=== PATIENT | female | born 1960 | race Caucasian/White ===

== ENCOUNTER 2017-08-02 12:34 | Emergency (ER) | payer OTHER ==
--- OUTSIDE RECORDS SUMMARY | 2017-08-02 12:42 | XMS REPORT ---
:1960 External Reference #:[id number] Author Organization [facility] Address [address] [address] Phone [phone] Care Team Providers Name Role Phone Avril Singh MD Primary Care Physician Unavailable Payers Type Date Identification Numbers Payment Provider Subscriber Commercial Policy Number: [id number] [facility] [employer] PayID: [id number] [address] [place] [address] Problems Date Description Provider Status Onset: 12/01/2013 Chest pain Hussein Dutta M.D. Active Onset: 12/01/2013 Obstructive sleep apnea syndrome Hussein Dutta M.D. Active Onset: 10/29/2013 Dyspnea Ica ECHO Schedule Active Family History Date Family Member(s) Problem(s) Comments Father fam history paternal grandfather, cardiac issues (uncertain of exact c/o) Mother Kidney Stones Mother lung cancer in mother Siblings 2 Siblings 2 siblings no cardiac issues in siblings Social History Type Date Description Comments Marital Status Lives With Lives With Children x1 Occupation Jeweler Cigarette Use Former Cigarette Smoker Smoked socially for 4 years ETOH Use Consumes 1 glass of wine per day Recreational Drug Use Denies Drug Use Smoking Patient is a former smoker Daily Caffeine Consumes on average 2 cups of hot tea per day Daily Caffeine Consumes on average 1 cup of regular coffee per day Exercise Type/Frequency Exercises regularly Swimming, Yoga, walking, ice skating General Hx Text Allergies, Adverse Reactions, Alerts Date Description Reaction Status Severity Comments 04/21/2013 NKDA active 11/28/2013 Adhesives active Mild to Moderate Medications Medication Date Status Form Strength Qnty SIG Indications Ordering Provider Proair HFA Active Aerosol 108(90Base 1units 1 puff by Unknown 000 ) mcg/Act mouth prior to swimming Vitamin B12 Active Tablets ER 1000mcg 1 by mouth Unknown 000 every day Clonazepam Hx as Unknown 015 - directed at bedtime 018 as needed for sleep Zostavax Hx Solution 12675Qka/0 1units 1 dose s/c Unknown 000 - Rec .65ML 014 Vital Signs Date Vital Result Comment 07/20/2017 Height 65 inches 5'5" Weight 114.00 lb Heart Rate 56 /min BP Systolic Sitting 106 mmHg BP Diastolic Sitting 66 mmHg Respiratory Rate 14 /min O2 % BldC Oximetry 99 % BMI (Body Mass Index) 19.0 kg/m2 07/28/2014 Height 65 inches 5'5" Weight 118.00 lb Heart Rate 69 /min BP Systolic Sitting 122 mmHg BP Diastolic Sitting 56 mmHg Respiratory Rate 18 /min O2 % BldC Oximetry 99 % BMI (Body Mass Index) 19.6 kg/m2 05/27/2014 Heart Rate 63 /min BP Systolic Sitting 122 mmHg BP Diastolic Sitting 64 mmHg Respiratory Rate 18 /min O2 % BldC Oximetry 98 % 03/24/2014 Height 65 inches 5'5" Weight 118.00 lb Heart Rate 71 /min BP Systolic Sitting 118 mmHg BP Diastolic Sitting 72 mmHg Respiratory Rate 16 /min Body Temperature 98.2 F O2 % BldC Oximetry 99 % BMI (Body Mass Index) 19.6 kg/m2 Neck Circumference in inches 12.75 12/01/2013 Height 64 inches 5'4" Weight 117.00 lb Heart Rate 76 /min BP Systolic 108 mmHg right, reg BP Diastolic 74 mmHg right, reg BP Systolic Sitting 110 mmHg left, reg BP Diastolic Sitting 76 mmHg left, reg BMI (Body Mass Index) 20.1 kg/m2 Results Test Date Test Result H/L Range Note CBC Auto Diff 03/24/2014 White Blood Count 6.1 10^3/uL 4.8-10.8 Red Blood Count 4.11 10^6/uL 4.0-5.4 Hemoglobin 13.1 g/dL 12.0-16.0 Hematocrit 38 % 35-47 Mean Corpuscular Volume 91 fL 80-97 Mean Corpuscular Hemoglobin 32 pg High 27-31 Mean Corpuscular HGB Conc 35 g/dL 31-36 Red Cell Distribution Width 13 % 10.5-15 Platelet Count 260 10^3/uL 150-450 Mean Platelet Volume 8 um3 7.4-10.4 Abs Neutrophils 3.3 10^3/uL 1.5-7.7 Abs Lymphocytes 2.4 10^3/uL 1.0-4.8 Abs Monocytes 0.3 10^3/uL 0-0.8 Abs Eosinophils 0.1 10^3/uL 0-0.6 Abs Basophils 0 10^3/uL 0-0.2 Abs Nucleated RBC 0 10^3/uL Granulocyte % 53.8 % 38-83 Lymphocyte % 39.2 % 25-47 Monocyte % 5.6 % 1-9 Eosinophil % 0.9 % 0-6 Basophil % 0.5 % 0-2 Nucleated Red Blood Cells % 0 Laboratory test finding 03/24/2014 Immunoglobulin E 15.9 kU/L 1 Order 01/08/2014 Stress Test, Exercise <pending> Echocardiogram 1 REFERENCE VALUE Mean 13.2 +1SD 41.0 +2SD 127.0 Test Performed by: [place] [address] Exhaust Worker: Alvaro Machado M.D. Procedures Date CPT Code Description Status 03/26/2014 22245 Diffusing Capacity Completed 03/26/2014 84721 Plethysmography Determination Lung Volumes & Per Completed Airway Resist 03/26/2014 47883 Pulmonary Function><Bronchodil Completed 01/08/2014 20708 ECHO Stress Test Incl Perf Contiuous ekg Monitoring Completed W/Phys Superv 01/08/2014 67143 ECHO Stress Test Incl Perf Contiuous ekg Monitoring Completed W/Phys Superv 12/01/2013 90368 EKG Tracing & Interpretation Completed 11/27/2013 73630 Color Flow Doppler/Interp & Reprt Completed 11/27/2013 10171 Pulse Wave/Continuous-Interp.RPT Completed 11/27/2013 05275 Echocardiography, Transesophageal, Real Time W/Image 2D Completed W/W/O M-M 10/29/2013 91175 ECHO Transthoracic, Real-Time 2D With Doppler And Color Completed Flow 06/16/2013 36047 Polysomnography Sleep Staging 4+ Parameters W/Cpap Completed 05/26/2013 87444 Polysomnography Sleep Staging 4+ Parameters Completed 01/08/2012 40510 Rad Exam; Hand Comp Completed Encounters Type Date Location Provider CPT E/M Dx Office Visit 07/28/2014 1:[facility] Mayur Cottrell M.D. 24917 493.10 [facility] 786.05 Office Visit 05/27/2014 2:00p [facility] Mayur Cottrell M.D. 09939 786.05 [facility] Office Visit 03/24/2014 3:00p [facility] Mayur Cottrell M.D. 51360 786.05 [facility] 327.23 Office Visit 01/08/2014 11:30a [facility] Marizamary Dutta, 21096 786.05 M.D. 327.23 780.79 Office Visit 12/01/2013 1:40p [facility] Marizamary Dutta, 81039 786.05 M.D. 327.23 786.50 Office Visit 05/01/2013 2:03p [facility] Solis Shah, 98484 780.59 M.D. 780.79 Office Visit 02/02/2012 9:15a [facility] Luz Mendoza, 73331 719.44 [facility] Office Visit 01/08/2012 10:30a [facility] Luz Mendoza, 73747 719.44 [facility] Plan of Care 07/20/2017 - KIMO Burnham06.02 Shortness of breathFollow up:PRNJ45.20 Mild intermittent asthma, [id number] Obstructive sleep apnea (adult) ( pediatric)
[2017-08-02] MEDS ORDERED: Tetan/Diph/Pertus SYR(Tdap)* 0.5 ML SYR(BOOSTRIX) use SYR IM ONE (12:44)
[2017-08-02 12:47] VITALS: BP 103/59
[2017-08-02] MEDS ORDERED: Lidocaine 1% MPF* 2 ML VIAL INJ ONE (12:49)
--- NOTE | 2017-08-02 13:33 | UC ---
Laceration HPI - HPI Summary HPI Summary: She presents to the with a chief complaint of the left palmar hand laceration measuring approximately 1.5 cm in length. She sustained injury approximately 1 hour prior to arrival while cutting an avocado. She endorses a deep wound, but bleeding is controlled on arrival. Endorses pain to the ipsilateral thumb, denies any numbness, tingling, color temperature changes around the laceration or to the thumb or fingers. Denies any pain at this time. She is unsure when her last tetanus was. - History Of Current Complaint Chief Complaint: UCLaceration Stated Complaint: HAND LAC Time Seen by Provider: 08/02/17 12:40 Hx Obtained From: Patient Mechanism Of Injury: Sharp Trauma Onset/Duration: Sudden Onset Severity: Moderate Pain Intensity: 0 Pain Scale Used: 0-10 Numeric Aggravating Factors: Nothing Related History: Dominant Hand Right - Allergies/Home Medications Allergies/Adverse Reactions: Allergies Allergy/AdvReac Type Severity Reaction Status Date / Time No Known Allergies Allergy Verified 08/02/17 12:48 Home Medications: Home Medications NK [No Home Medications Reported] 08/02/17 [History Confirmed 08/02/17] PMH/Surg Hx/FS Hx/Imm Hx Previously Healthy: Yes - Surgical History Surgical History: Yes Surgery Procedure, Year, and Place: JAW SURGERY 1976 [place], GALLBLADDER SURGERY 03/20 [facility] [place], BROKEN NOSE SURGEY 03/25 [facility] [place],DEVIATED SEPTUM SOL PA 5-10 YRS AGO - Social History Occupation: Employed Full-time Lives: With Family Alcohol Use: Daily Alcohol Amount: wine Substance Use Type: None Smoking Status (MU): Never Smoked Tobacco Review of Systems Constitutional: Negative Skin: Negative Respiratory: Negative Cardiovascular: Negative Motor: Negative Neurovascular: Negative Musculoskeletal: Negative Neurological: Negative Psychological: Negative Is Patient Immunocompromised?: No All Other Systems Reviewed And Are Negative: Yes Physical Exam Triage Information Reviewed: Yes Appearance: Well-Appearing, Well-Nourished Vital Signs: Initial Vital Signs Temp 98 F 08/02/17 12:44 Pulse 62 08/02/17 12:44 Resp 16 08/02/17 12:44 BP 103/59 08/02/17 12:44 Pulse Ox 98 08/02/17 12:44 Vital Signs Reviewed: Yes Eye Exam: Normal Respiratory Exam: Normal Respiratory: Positive: Chest non-tender, Lungs clear Cardiovascular Exam: Normal Cardiovascular: Positive: RRR Musculoskeletal Exam: Normal Musculoskeletal: Positive: Strength Intact Neurological Exam: Normal Neurological: Positive: Alert Psychological: Positive: Normal Response To Family Laceration Repair - Laceration Repair 1 Description: Linear Laceration Size After Repair: Length (cm) - 1.5 Modified For Repair: No Type Injection: Local Anesthesia Used: 2.0% Lido Cleansing Completed Via Routine Prep: Yes Irrigation With Pressure Irrigation Device: Yes Closure Material: Sutures - 3 Closure Method: Single Layer Suture Of: Skin Suture Type: Prolene Laceration Course/Dx - Course/Dx Course Of Treatment: Course of treatment, the patient is evaluated for left palmar hand laceration measuring 1.5 cm in length. Time out obtained. Cleanse wound thoroughly with normal saline. Jet irrigation. Patient tolerated well. 2ml lidocaine to the left palmar area surrounding the wound. 3 5-0 Prolene sutures placed. Telfa dressing applied. Gauze wrap. Instructions given. She will have suture removal in 6 days. Tetanus updated this date. She is okay with plan at discharge. - Differential Dx - Laceration/Wound Provider Diagnoses: Laceration R hand Discharge - Sign-Out/Discharge Documenting (check all that apply): Discharge - Discharge Plan Condition: Stable Disposition: HOME Patient Education Materials: Laceration (ED) Referrals: Avril Singh MD [Primary Care Provider] - Additional Instructions: Leave open to air after 24 hours Tetanus has been updated today Gently wash hands with soap and water as normal starting tomorrow - Billing Disposition and Condition Condition: STABLE Disposition: HOME
== END 2017-08-02 13:18 | disposition home or self-care (01) ==
LOC: UCEAST 12:34
DX: S61.411A Laceration without foreign body of right hand, initial encounter (principal); W26.0XXA Contact with knife, initial encounter; Y93.G1 Activity, food preparation and clean up; Y92.9 Unspecified place or not applicable; Z23 Encounter for immunization
CPT/HCPCS: 12001; 90471; 90715; 99211; G0463

== ENCOUNTER 2018-05-22 17:04 | Emergency (ER) | payer BC, OTHER ==
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
[2018-05-22] MEDS ORDERED: Ibuprofen TAB* 600 MG PO ONE (19:01)
[2018-05-22 19:31] VITALS: BP 123/83
== END 2018-05-22 19:28 | disposition home or self-care (01) ==
LOC: ED 17:04
DX: S52.92XA Unspecified fracture of left forearm, initial encounter for closed fracture (principal); F41.9 Anxiety disorder, unspecified; W00.0XXA Fall on same level due to ice and snow, initial encounter; Y92.9 Unspecified place or not applicable; E78.00 Pure hypercholesterolemia, unspecified; J45.909 Unspecified asthma, uncomplicated; G47.30 Sleep apnea, unspecified
CPT/HCPCS: 29125; 99282; A9270-GY